=== PATIENT | male | born 1970 ===

== ENCOUNTER 2021-12-08 10:06 | Emergency (ER) | payer OTHER ==
[~2021-12-08] VITALS: Ht 167.6 cm; Wt 86.2 kg
[2021-12-08] MEDS ORDERED: CYCL-837 PO (11:52)
[2021-12-08] MEDS ORDERED: IBUP800T27 PO (11:52)
[2021-12-08 13:01] VITALS: BP 125/76
== END 2021-12-08 14:44 | disposition home or self-care (01) ==
LOC: ER 10:06
DX: S16.1XXA Strain of muscle, fascia and tendon at neck level, initial encounter (principal); M48.02 Spinal stenosis, cervical region; E78.5 Hyperlipidemia, unspecified; Z79.1 Long term (current) use of non-steroidal anti-inflammatories (NSAID); Z79.899 Other long term (current) drug therapy; Z88.2 Allergy status to sulfonamides; Z88.8 Allergy status to other drugs, medicaments and biological substances; Z91.013 Allergy to seafood; Z91.012 Allergy to eggs; Z91.011 Allergy to milk products; V43.92XA Unspecified car occupant injured in collision with other type car in traffic accident, initial encounter; Y93.89 Activity, other specified; Y92.410 Unspecified street and highway as the place of occurrence of the external cause; Y99.8 Other external cause status
CPT/HCPCS: 72125

== ENCOUNTER 2022-03-09 14:14 | Emergency (ER) | payer OTHER ==
[~2022-03-09] VITALS: Ht 167.6 cm; Wt 84.4 kg
[~2022-03-09 14:14] MED LIST: CYCL-837 PO; IBUP800T27 PO
[2022-03-09 14:24] VITALS: BP 113/78
== END 2022-03-09 21:45 | disposition left against medical advice (07) ==
LOC: ER 14:14
DX: S61.511A Laceration without foreign body of right wrist, initial encounter (principal); Z53.21 Procedure and treatment not carried out due to patient leaving prior to being seen by health care provider; W26.8XXA Contact with other sharp object(s), not elsewhere classified, initial encounter; Y93.89 Activity, other specified; Y92.89 Other specified places as the place of occurrence of the external cause; Y99.8 Other external cause status